=== PATIENT | female | born 1945 | race Caucasian/White ===

== ENCOUNTER 2023-07-17 05:07 | Emergency (ER) | payer MEDICARE, OTHER, SELFPAY ==
[2023-07-17 05:09] VITALS: BP 158/92
[2023-07-17 05:51] VITALS: BP 137/88
--- NOTE | 2023-07-17 06:07 | ED.GENMED ---
History of Present Illness
General
Chief Complaint: Head Injury
Source: patient
Exam Limitations: none
Time Seen by Provider: 07/17/23 06:04
Travel History
Have you had any contact with someone who has COVID-19?: No
Do you have any symptoms of coronavirus? Fever > 100 degrees, chills, cough, shortness of breath, sore throat, loss of taste or smell, muscle aches, or headache?: No
History of Present Illness
History of Present Illness:
See MDM
Past History
Past History
ED Past Medical History: None
ED Past Surgical History: None
Social History
Tobacco: Non-smoker
Alcohol: None
Phy Exam
Physical Exam
Physical Exam:
See MDM
Course
Orders/Labs/Results
Orders:
Orders
07/17/23 06:06
CT Head W/o Iv Contrast Urgent
Comment:
Reason For Exam: left head injury
Tetanus/Diphth/Acelpertussis [Adacel] 0.5 ml IM .ONCE ONE
Vital Signs
Initial and Last Documented VS:
Initial Vital Signs
Temp Pulse Resp BP Pulse Ox
97.4 F 78 22 158/92 96
07/17/23 05:09 07/17/23 05:09 07/17/23 05:09 07/17/23 05:09 07/17/23 05:09
Last Documented Vital Signs
Temp Pulse Resp BP Pulse Ox
97.6 F 74 20 137/88 94
07/17/23 05:51 07/17/23 05:51 07/17/23 05:51 07/17/23 05:51 07/17/23 05:51
Procedures
Laceration Closure
Left Upper Lateral Ear:
Status of Wound: clean
Size of Wound in cm: 6
Description of Wound Edges: sharp
Preparation: cleaned with saline
Anesthesia: 1% Lidocaine
Revision/Debridement: minor revision
Wound exploration: explored to base- no FB
Type of Closure: single layer closure
Skin Closure Material: 5-0 nylon
Number of sutures: 11
MDM/Problems Addressed
Differential Diagnosis Includes:
HPI and MDM Narrative:
77-year-old female presenting with left ear injury. Patient got up from bed and she slipped and she cut her ear. She complains of mild headache. She denies loss of consciousness
On exam, patient does have laceration to the top of her left ear.
Given age and injury, will obtain CT head
Physical exam
General: Well appearing and non-toxic
HEENT: protecting airway. Laceration to top of left ear with exposed cartilage
Neck: supple
CV: No evidence of cyanosis
Resp: No accessory muscle use
Abd: Non-distended
Extremities: No deformities
Neuro: alert
Psych: Normal affect
Skin: Intact
Problems Addressed including Acute and Chronic Conditions affecting care:
1. Left ear laceration
Acuity: acute
Prognosis: stable
Details: Will obtain CT head given injury and will repair ear. Discussed follow-up with plastic surgery
11 sutures placed. Patient tolerated procedure well. Discussed follow-up with
Updates
Plastic surgery. CT head negative
Differential Diagnosis (but not limited to): Skull fracture, intracranial hemorrhage, ear laceration
Testing considered: CT neck but there is no tenderness
Drug therapy (if applicable): OTC meds, please see d/c instruction regarding Rx drugs
Amount and/or Complexity of Data Reviewed
Clinical info obtained from: Patient
External data reviewed: N/A
Labs I independently reviewed (but not limited to): N/A
Radiology: the CT scan was personally and independently reviewed. In addition, official CT report reviewed.
Pulse Ox: not hypoxic
EKG independently reviewed: N/A
[employer] Machine Operator: N/A
Critical Care: N/A
Risk of Complication:
Social Determinants of health: Good social support
Discussed with other providers: N/A
Escalation of Care includes Admit/Obs: After being observed in the Emergency Department, pt stable for discharge.
Occasional wrong word or 'sound a like' substitutions may have occurred due to the inherent limitations of voice recognition software. Read the chart carefully and recognize, using context, where substitutions have occurred.
*Critical Care Note
Total Time (30-74mins, 75-104mins- exclusive of procedures): Not Applicable
ED Attending Note
-
Portions of this chart may have been created with voice recognition software.� Occasional wrong word or��sound alike� substitutions may have occurred due to the inherent limitations of voice recognition software.
Discharge Plan
Departure
Patient Disposition: Home (Routine Discharge)
Date of Disposition: 07/17/23
Time of Disposition: 07:32
Patient with high blood pressure during this ER visit?: Yes
Discharge Problem:
Laceration of ear
Instructions: Laceration Repair With Stitches (DC), BLOOD PRESSURE
Prescriptions:
New
amoxicillin-pot clavulanate 875-125 mg tablet
1 tab PO BID Qty: 14 0RF
Referrals:
Etienne Rodriguez, [Family Provider] -
Kirill Pandey MD [Active] -
Activity Restrictions/Additional Instructions:
Keep wound clean and dry, change dressing if it becomes soiled or wet. Watch for signs of infection: fever over 100.5�, increasing pain, red streaks around wound, swelling, drainage of pus, or bad smell. If any of these happen, return to ED
promptly. Return to ED or make an appointment with your doctor to have the 11 sutures removed in 7 days. All wounds may scar, however you may reduce the appearance of scarring by avoiding sun exposure to the scar and applying skin moisturizer with
spf protection to the scar once the wound is healed.
Please have this evaluated by the plastic surgeon.
Interventions
Interventions:
*Risk Screen - Suicide Last Done: 07/17/23 05:09
*General Assessment Last Done: 07/17/23 06:22
*Neglect/Abuse Screening Last Done: 07/17/23 05:09
ED- Fall Risk Assessment Last Done: 07/17/23 05:47
*ED COVID-19 Vaccine History Last Done: 07/17/23 06:21
ED-Musculoskeletal Assessment Last Done: 07/17/23 05:47
ED- Neurological Assessment Last Done: 07/17/23 05:46
ED-Skin Assessment Last Done: 07/17/23 05:48
Discharge Date and Time
Print Language: PARAGUAYAN
[2023-07-17] MEDS: ADACEL 0.5 ML IM (06:17)
[2023-07-17] MEDS: AUGMENTIN 875 MG/125 MG 1 TABLET PO (07:42)
== END 2023-07-17 08:00 | disposition home or self-care (01) ==
LOC: EMR 05:07
PROVIDERS: EMERGENCY PHYSICIAN Student in an Organized Health Care Education/Training Program; FAMILY PHYSICIAN Family Medicine
DX: S01.312A Laceration without foreign body of left ear, initial encounter (principal); W06.XXXA Fall from bed, initial encounter; Z23 Encounter for immunization
CPT/HCPCS: 99284; 12014; 90471; 70450; 90715

== ENCOUNTER 2023-07-21 16:30 | Emergency (ER) | payer MEDICARE, OTHER, SELFPAY ==
[2023-07-21 16:36] VITALS: BP 135/90
--- NOTE | 2023-07-21 18:50 | ED.GENMED ---
History of Present Illness
General
Chief Complaint: Head Injury
Source: patient and spouse
Exam Limitations: none
Time Seen by Provider: 07/21/23 17:23
Nursing documentation reviewed up to this point in time: agreed with
Travel History
Have you had any contact with someone who has COVID-19?: No
Do you have any symptoms of coronavirus? Fever > 100 degrees, chills, cough, shortness of breath, sore throat, loss of taste or smell, muscle aches, or headache?: No
History of Present Illness
History of Present Illness:
77-year-old female past medical history of hypertension hyperlipidemia hypothyroidism presenting to the emergency department 5 days after a fall she had. Initially had CT scan and sutures but had some intermittent head pressure headache and
sleepiness which prompted come to the emergency department for repeated CT scan according to her primary care doctor. Denies any vomiting numbness weakness neck pain.
Past History
Past History
ED Past Medical History: None
ED Past Surgical History: None
Social History
Tobacco: Non-smoker
Alcohol: None
Review of Systems
Review of Systems
Allergies reviewed?: Yes
All Other Systems: ROS reviewed and negative except as documented in HPI and ROS
Phy Exam
Physical Exam
Physical Exam:
GENERAL: Alert , in no apparent distress
EYE: pupils equal and reactive
NECK: Supple, no significant adenopathy.
ENT: o/p clr, mmm.
CARDIAC: Regular rate and rhythm .
LUNGS: Clear breath sounds bilaterally, no acute respiratory distress, no wheezes/rales/rhonchi
ABDOMEN: Soft, without focal tenderness, no r/g, no cvat
NEUROLOGICAL: Alert and oriented, no focal neuro deficits
SKIN: Warm and dry, skin intact.
MUSCULOSKELETAL: No edema, well perfused.
PSYCH: Normal and appropriate interaction.
Course
Orders/Labs/Results
Orders:
Orders
07/21/23 17:53
CT Head W/o Iv Contrast Urgent
Comment:
Reason For Exam: headache worsneing
Vital Signs
Initial and Last Documented VS:
Initial Vital Signs
Temp Pulse Resp BP Pulse Ox
97.3 F 72 18 135/90 96
07/21/23 16:36 07/21/23 16:36 07/21/23 16:36 07/21/23 16:36 07/21/23 16:36
Last Documented Vital Signs
Temp Pulse Resp BP Pulse Ox
97.3 F 72 18 135/90 96
07/21/23 16:36 07/21/23 16:36 07/21/23 16:36 07/21/23 16:36 07/21/23 16:36
MDM/Problems Addressed
MDM/Problems Addressed:
77-year-old female presenting to the emergency department with concerns of ongoing mild headache sleepiness after hitting her head [address] scan of the which was normal. Repeated head CT here normal as well patient generally
well-appearing normal neurologic evaluation stable for discharge at this time may have mild concussion given instructions for rest.
*Critical Care Note
Total Time (30-74mins, 75-104mins- exclusive of procedures): Not Applicable
ED Attending Note
-
Portions of this chart may have been created with voice recognition software.� Occasional wrong word or��sound alike� substitutions may have occurred due to the inherent limitations of voice recognition software.
Discharge Plan
Departure
Patient Disposition: Home (Routine Discharge)
Date of Disposition: 07/21/23
Time of Disposition: 18:53
Patient with high blood pressure during this ER visit?: No
Condition: Good
Covid-19: Not Applicable
Discharge Problem:
Headache
Instructions: Concussion, Adult (DC)
Prescriptions:
No Action
amoxicillin-pot clavulanate 875-125 mg tablet
1 tab PO BID Qty: 14 0RF
Referrals:
Etienne Rodriguez, [Family Provider] -
Activity Restrictions/Additional Instructions:
You came to the emergency department today with concerns of ongoing symptoms after hitting her head few days ago. You had a repeated CT scan which was normal. Return to the emergency department for any worsening, new or concerning symptoms.
Interventions
Interventions:
*General Assessment Last Done: 07/21/23 16:36
*ED COVID-19 Vaccine History Last Done: 07/21/23 16:36
ED- Neurological Assessment Last Done: 07/21/23 18:21
ED-Skin Assessment Last Done: 07/21/23 18:21
Discharge Date and Time
Print Language: INDONESIAN
== END 2023-07-21 19:13 | disposition home or self-care (01) ==
LOC: EMR 16:30
PROVIDERS: EMERGENCY PHYSICIAN Emergency Medicine; FAMILY PHYSICIAN Family Medicine
DX: R51.9 Headache, unspecified (principal); I10 Essential (primary) hypertension; E78.00 Pure hypercholesterolemia, unspecified; E03.9 Hypothyroidism, unspecified
CPT/HCPCS: 99284; 70450

== ENCOUNTER → 2023-12-18 12:49 | Outpatient (REF) | payer MEDICARE, OTHER, SELFPAY | LOC: WDC 12:49 | PROVIDERS: ATTENDING PHYSICIAN Family Medicine | DX: Z12.31 Encounter for screening mammogram for malignant neoplasm of breast (principal) | CPT/HCPCS: 77063; 77067 ==

== ENCOUNTER → 2024-08-27 13:17 | Outpatient (REF) | payer MEDICARE, OTHER, SELFPAY | LOC: HWRAD 13:17 | PROVIDERS: ATTENDING PHYSICIAN Nurse Practitioner; FAMILY PHYSICIAN Family Medicine | DX: R35.0 Frequency of micturition (principal) | CPT/HCPCS: 76770; 76856 ==

== ENCOUNTER → 2024-12-18 12:47 | Outpatient (REF) | payer MEDICARE, OTHER, SELFPAY | LOC: WDC 12:47 | PROVIDERS: ATTENDING PHYSICIAN Family Medicine | DX: Z12.31 Encounter for screening mammogram for malignant neoplasm of breast (principal) | CPT/HCPCS: 77063; 77067 ==